=== PATIENT | female | born 1945 ===

== ENCOUNTER → 2018-08-17 15:50 | Outpatient (REF) | payer MEDICARE, OTHER, SELFPAY | LOC: LAB 15:50 | PROVIDERS: Visit Provider Dermatology MOHS-Micrographic Surgery | DX: Z48.817 Encounter for surgical aftercare following surgery on the skin and subcutaneous tissue (principal); C44.629 Squamous cell carcinoma of skin of left upper limb, including shoulder | CPT/HCPCS: 87070; 87075; 87205 ==